=== PATIENT | female | born 1940 | race Caucasian/White ===

== ENCOUNTER → 2020-08-14 | Outpatient (CLI) | payer MEDICARE ==
[~2020-08-14] MED LIST: OMNIPAQUE 350 MG/ML, 100ML BOTTLE ONE
== END | disposition home or self-care (01) ==
LOC: CFH 13:16
PROVIDERS: ATTEND Registered Nurse
DX: H53.2 Diplopia (principal)
CPT/HCPCS: 70496; 70498; 82565; Q9967

== ENCOUNTER 2020-08-22 10:28 | Outpatient (CLI) | payer MEDICARE | END 2020-08-22 23:59 | disposition home or self-care (01) | LOC: CVU 10:28 | PROVIDERS: ATTEND Registered Nurse | DX: I08.0 Rheumatic disorders of both mitral and aortic valves (principal); R42 Dizziness and giddiness; G45.9 Transient cerebral ischemic attack, unspecified; H53.2 Diplopia | CPT/HCPCS: 93306; 93356; 95819 ==